=== PATIENT | male | born 1965 | race Caucasian/White ===

== ENCOUNTER 2019-10-29 13:16 | Outpatient (CLI) | payer OTHER, SELFPAY ==
[2019-10-29 14:17] LABS: Basophils Percent Auto 0.4 % (0.2-1.2); Eosinophils Absolute Auto 0.2 K/mm3 (0-0.3); Eosinophils Percent Auto 2.4 % (0-4.4); Hemoglobin 15.1 g/dL (14.0-18.0); Immature Granulocyte Absolute 0.05 K/mm3 (0.00-0.031); Immature Granulocyte Percent A 0.5 % (0-0.5); Lymphocytes Absolute Auto 2.43 K/mm3 (0.9-3.2); Lymphocytes Percent Auto 26.3 % (18.3-44.2); Mean Corpuscular HGB Conc 33.6 g/dl (32-36); Mean Corpuscular Hemoglobin 28.7 pg (26-34); Mean Corpuscular Volume 85.6 fl (80-100); Mean Platelet Volume 10.6 fl (7.4-10.4); Monocytes Absolute Auto 0.7 K/mm3 (0.1-0.6); Monocytes Percent Auto 7.4 % (2.6-8.5); Neutrophils Absolute Auto 5.8 K/mm3 (1.3-6.7); Platelet Count Result 153 k/mm3 (150-375); Red Blood Count 5.26 M/mm3 (4.6-6.20); Red Cell Distribution Width 14.6 % (11.5-14.5); White Blood Count 9.3 K/mm3 (4.5-10.0)
[2019-10-29 14:20] LABS: Add Urine Microscopic? YES; Appearance Urine Clear (Clear); Bilirubin Urine Negative (Negative); Blood Urine 1+ (Negative); Color Urine Yellow (Yellow); Glucose Urine UA Negative (Negative); Ketones Urine Negative (Negative); Leukocyte Esterase Ur Negative LEU/UL (NEGATIVE); Mucus Urine Rare /lpf; Nitrate Urine Negative (Negative); Protein Urine Negative (Negative); Specific Grav Ur 1.018 (1.001-1.035); Squamous Epithelial Cell Urine Rare /hpf (Few); Urobilinogen Urine Negative mg/dL (<2.0); WBC Urine 0-3 /hpf (0-3)
[2019-10-29 14:32] LABS: Alanine Aminotransferase 61 U/L (4-50); Albumin Level 4.5 g/dL (3.5-5.1); Alkaline Phosphatase 108 U/L (38-126); Aspartate Amino Transferase 48 U/L (17-59); Bilirubin,Total 1.3 mg/dL (0.2-1.3); Blood Urea Nitrogen 15 mg/dL (9-20); Calcium 9.1 mg/dL (8.4-10.2); Carbon Dioxide 25 mmol/L (22-30); Chloride 104 mmol/L (98-107); Cholesterol 229 mg/dL (0-200); Estimated Glomerular Filt Rate > 60; Glucose 89 mg/dL (75-110); HDL Direct 26 mg/dL; Sodium 138 mmol/L (137-145); Triglycerides 249 mg/dL (<150)
[2019-10-29 14:42] LABS: LDL Cholesterol Direct 178 mg/dL
[2019-10-29 15:03] LABS: Hemoglobin A1C 5.4 % (<5.7); Prostate Specific Antigen 0.4 ng/mL (< OR = 4.0)
== END 2019-10-29 13:17 | disposition home or self-care (01) ==
PROVIDERS: PCP Family Medicine; Visit Provider Physician Assistant
DX: E78.5 Hyperlipidemia, unspecified (principal); F32.9 Major depressive disorder, single episode, unspecified; R73.01 Impaired fasting glucose
CPT/HCPCS: 36415; 80053; 80061; 81001; 83036; 84153; 84443; 85025

== ENCOUNTER 2019-11-12 15:43 | Outpatient (CLI) | payer OTHER, SELFPAY ==
[2019-11-12 16:15] LABS: Add Urine Microscopic? YES; Appearance Urine Clear (Clear); Bilirubin Urine Negative (Negative); Blood Urine 1+ (Negative); Color Urine Yellow (Yellow); Glucose Urine UA Negative (Negative); Ketones Urine Negative (Negative); Leukocyte Esterase Ur Negative LEU/UL (NEGATIVE); Nitrate Urine Negative (Negative); Protein Urine Negative (Negative); Specific Grav Ur 1.017 (1.001-1.035); Urobilinogen Urine Negative mg/dL (<2.0); WBC Urine 0-3 /hpf (0-3)
== END 2019-11-12 15:44 | disposition home or self-care (01) ==
PROVIDERS: Physician Assistant; PCP Family Medicine; Visit Provider Family Medicine
DX: R31.9 Hematuria, unspecified (principal)
CPT/HCPCS: 81001

== ENCOUNTER 2020-04-27 13:45 | Outpatient (CLI) | payer OTHER, SELFPAY ==
--- NOTE | ~2020-04-27 | XR_ITS ---
EXAMINATION: XR chest 2V DATE: 04/27/2020 14:07 INDICATION: Chest pain. TECHNIQUE: Frontal and lateral views of the chest were obtained. COMPARISON: Chest CT 09/08/2018, chest 2 views 08/07/2017 FINDINGS: There is mild atelectasis at left lung base. Calcified right lung nodules and calcified rig ht hilar lymph nodes are consistent with old granulomatous disease. No pleural effusion or pneumothor ax. The heart size is normal. IMPRESSION: 1. Mild atelectasis at left lung base. Reviewed, dictated and finalized at location B. [facility]
[2020-04-27 14:28] LABS: Hemoglobin 15.4 g/dL (14.0-18.0); Mean Corpuscular HGB Conc 34.2 g/dl (32-36); Mean Corpuscular Hemoglobin 28.4 pg (26-34); Mean Platelet Volume 10.3 fl (7.4-10.4); Platelet Count Result 177 k/mm3 (150-375); Red Blood Count 5.42 M/mm3 (4.6-6.20); Red Cell Distribution Width 14.3 % (11.5-14.5); White Blood Count 11.1 K/mm3 (4.5-10.0)
[2020-04-27 14:43] LABS: D Dimer 0.27 ug/mL (<0.48)
[2020-04-27 15:50] LABS: Basophils Absolute Auto 0.1 K/mm3 (0.0-0.1); Basophils Percent Auto 0.5 % (0.2-1.2); Eosinophils Absolute Auto 0.2 K/mm3 (0-0.3); Eosinophils Percent Auto 1.9 % (0-4.4); Immature Granulocyte Absolute 0.05 K/mm3 (0.00-0.031); Immature Granulocyte Percent A 0.5 % (0-0.5); Lymphocytes Absolute Auto 2.27 K/mm3 (0.9-3.2); Lymphocytes Percent Auto 20.8 % (18.3-44.2); Monocytes Absolute Auto 0.8 K/mm3 (0.1-0.6); Monocytes Percent Auto 7.4 % (2.6-8.5); Neutrophils Absolute Auto 7.5 K/mm3 (1.3-6.7); Neutrophils Percent Auto 68.9 % (45.5-73.1)
== END 2020-04-27 13:46 | disposition home or self-care (01) ==
LOC: ANHIMG 13:48
PROVIDERS: PCP Family Medicine; Visit Provider Nurse Practitioner Family
DX: R07.9 Chest pain, unspecified (principal); R91.8 Other nonspecific abnormal finding of lung field
CPT/HCPCS: 36415; 71046; 85025; 85027; 85380

== ENCOUNTER 2020-08-03 08:31 | Outpatient (CLI) | payer OTHER, SELFPAY | END 2020-08-03 08:32 | disposition home or self-care (01) | LOC: ANHCOVIDVC 08:31 | PROVIDERS: PCP Family Medicine | DX: Z23 Encounter for immunization (principal) | CPT/HCPCS: 0001A; 91300 ==

== ENCOUNTER 2020-08-24 08:29 | Outpatient (CLI) | payer OTHER, SELFPAY | END 2020-08-24 08:30 | disposition home or self-care (01) | LOC: ANHCOVIDVC 08:29 | PROVIDERS: PCP Family Medicine | DX: Z23 Encounter for immunization (principal) | CPT/HCPCS: 0002A; 91300 ==

== ENCOUNTER 2021-05-26 12:17 | Outpatient (CLI) | payer OTHER, SELFPAY ==
[2021-05-26 12:38] LABS: Basophils Absolute Auto 0.1 K/mm3 (0.0-0.1); Basophils Percent Auto 0.7 % (0.2-1.2); Eosinophils Absolute Auto 0.2 K/mm3 (0-0.3); Hematocrit 44.7 % (42.0-52.0); Immature Granulocyte Absolute 0.04 K/mm3 (0.00-0.031); Immature Granulocyte Percent A 0.4 % (0-0.5); Lymphocytes Absolute Auto 2.42 K/mm3 (0.9-3.2); Lymphocytes Percent Auto 26.4 % (18.3-44.2); Mean Corpuscular HGB Conc 33.6 g/dl (32-36); Mean Corpuscular Volume 86.5 fl (80-100); Mean Platelet Volume 10.1 fl (7.4-10.4); Monocytes Absolute Auto 0.6 K/mm3 (0.1-0.6); Monocytes Percent Auto 6.9 % (2.6-8.5); Neutrophils Absolute Auto 5.9 K/mm3 (1.3-6.7); Neutrophils Percent Auto 63.6 % (45.5-73.1); Platelet Count Result 177 k/mm3 (150-375); Red Blood Count 5.17 M/mm3 (4.6-6.20); Red Cell Distribution Width 14.2 % (11.5-14.5); White Blood Count 9.2 K/mm3 (4.5-10.0)
[2021-05-26 12:47] LABS: Alanine Aminotransferase 44 U/L (4-50); Albumin Level 4.7 g/dL (3.5-5.1); Alkaline Phosphatase 109 U/L (38-126); Anion Gap 10 mmol/L (8-16); Aspartate Amino Transferase 32 U/L (17-59); Blood Urea Nitrogen 14 mg/dL (9-20); Calcium 9.2 mg/dL (8.4-10.2); Carbon Dioxide 25 mmol/L (22-30); Chloride 105 mmol/L (98-107); Cholesterol 231 mg/dL (0-200); Estimated Glomerular Filt Rate > 60; Glucose 102 mg/dL (65-110); HDL Direct 34 mg/dL; Potassium 4.4 mmol/L (3.4-5.0); Sodium 140 mmol/L (137-145); Triglycerides 187 mg/dL (<150)
[2021-05-26 12:58] LABS: LDL Cholesterol Direct 168 mg/dL
[2021-05-26 13:02] LABS: Add Urine Microscopic? YES; Appearance Urine Clear (Clear); Bacteria Urine Trace /hpf; Bilirubin Urine Negative (Negative); Blood Urine Negative (Negative); Color Urine Yellow (Yellow); Glucose Urine UA Negative (Negative); Ketones Urine Negative (Negative); Leukocyte Esterase Ur Negative LEU/UL (NEGATIVE); Mucus Urine Rare /lpf; Nitrate Urine Negative (Negative); Protein Urine Negative (Negative); RBC Urine 0-2 /hpf (0-2); Specific Grav Ur 1.024 (1.001-1.035); Squamous Epithelial Cell Urine Rare /hpf (Few); WBC Urine 0-3 /hpf (0-3)
[2021-05-26 13:18] LABS: Prostate Specific Antigen 0.3 ng/mL (< OR = 4.0)
[2021-05-26 13:53] LABS: Folic Acid 5.1 ng/mL (2.76->20)
== END 2021-05-26 12:18 | disposition home or self-care (01) ==
PROVIDERS: PCP Family Medicine; Visit Provider Physician Assistant
DX: R31.9 Hematuria, unspecified (principal); R20.2 Paresthesia of skin; R73.01 Impaired fasting glucose; R25.3 Fasciculation; F32.9 Major depressive disorder, single episode, unspecified; E78.5 Hyperlipidemia, unspecified; Z00.00 Encounter for general adult medical examination without abnormal findings
CPT/HCPCS: 36415; 80053; 80061; 81001; 82607; 82746; 84153; 84443; 85025

== ENCOUNTER 2022-03-18 03:08 | Day surgery (SDC) | payer OTHER, SELFPAY ==
[2022-03-12 12:23] VITALS: BMI 34.1
[2022-03-18] MEDS: LACTATED RINGERS 1,000 ML 150 ML IV CONT (08:46)
[2022-03-18 08:47] VITALS: BP 122/92; PULSE 85; RESP 18; TEMP 36.3; O2SAT 98; BMI 34.9
--- NOTE | 2022-03-18 08:56 | WPDANESEPPF ---
Anes - Initial Pre Proc Eval Procedure: Operation Date: 03/18/22 09:30 Proposed Procedures p Screening Colonoscopy - Prosper Barrow MD Date/Time: 03/18/22 08:56 Surgeon: Prosper Barrow MD Pre Op Diagnosis: hx of colon polyps, neoplasm screening Patient Data Age: 56 Gender: M Height: 1.78 m Weight: 110.3 kg Last Vital Signs Temp 36.3 C L 03/18/22 08:47 Pulse 85 03/18/22 08:47 Resp 18 03/18/22 08:47 BP 122/92 H 03/18/22 08:47 Pulse Ox 98 03/18/22 08:47 O2 Del Method Room Air 03/18/22 08:47 Allergies Allergy/AdvReac Type Severity Reaction Status Date / Time No Known Allergies Allergy Unknown Verified 03/18/22 08:41 Home Medications Medication Instructions Recorded Confirmed Type triamcinolone acetonide 0.1 % 1 applic topical BID #30 grams 09/12/20 03/18/22 Rx topical cream atorvastatin 80 mg tablet See Rx Instructions .Route 04/26/21 03/18/22 Rx .COMPLEX #90 tabs omeprazole 40 mg capsule,delayed 40 mg PO DAILY #90 caps 08/02/21 03/18/22 Rx release bupropion HCl 150 mg 24 hr tablet, 150 mg PO QAM #90 tabs 08/27/21 03/18/22 Rx extended release (Wellbutrin XL) buspirone 5 mg tablet 5 mg PO BID #60 tabs 01/01/22 03/18/22 Rx peg 3350-electrolytes 236 240 ml PO Q10M #4,000 mL 02/11/22 03/18/22 Rx gram-22.74 gram-6.74 gram-5.86 gram solution (Golytely) sertraline 100 mg tablet (Zoloft) 200 mg PO DAILY #180 tabs 03/04/22 03/18/22 Rx Patient hx anesthesia problems: none Family hx anesthesia problems: none Results Review: All pre-operative results and documents have been reviewed as part of the pre-operative evaluation. [facility] Past Medical History Medical History Depression H/O traumatic brain injury Hematuria Hyperlipidemia IFG (impaired fasting glucose) Muscle twitching Paresthesia of lower extremity SDH (subdural hematoma) Skin mole Surgical History Surgical History (Updated 03/18/22 @ 08:56 by Pantera Pinedo MD) H/O colonoscopy Social History Social History Social History: Single Smoking packs per day: 2.5 Smoking cigarettes per day: 50.0 Years smoked: 28 Smoking pack-years: 70.00 Smoking status: Former smoker Tobacco type: cigarettes Second hand tobacco smoke exposure: No Smoking end date: 05/19/99 Alcohol intake: current Drinks per week: 1 Alcohol use details: socially Substance use: never Substance use type: does not use Living arrangements: with family Gender identity (if verbalized by the patient): Male Sexual Orientation (if Verbalized by the Patient): Straight or Heterosexual Spiritual care concerns: No Anes - Eval Final PreProcedure Day of Procedure 03/18/22 08:56 Patient weight: obese Heart: regular rate and rhythm Lungs: clear to auscultation Airway: Mallampati scale class II Neurological: alert and oriented Last oral intake: >/= 8 hours ASA classification: III Emergent: no Anesthesia type and monitoring: general GIVS and standard monitoring Results Review: All pre-operative results and documents have been reviewed as part of the pre-operative evaluation. Informed Consent: The patient's anesthetic plan and its attendant risks and benefits were discussed with the patient/family/POA. Questions were solicited and answers provided to the satisfaction of the patient/family/POA.
--- NOTE | 2022-03-18 09:13 | PM.HPGS ---
History of Present Illness History of Present Illness Consent: Risks, benefits, and alternatives have been discussed and questions answered. Patient agrees to proceed with procedure. Chief complaint: hx of colon polyps, neoplasm screening Narrative: Richard Cardona II is a 56 year old male Presents for screening colonoscopy. Patient's current weight appetite and bowel movements are normal. Patient denies abdominal pain. He has had no bleeding. Previous colonoscopy [address] Dow revealed several benign adenomatous colon polyps. Patient presents today for screening colonoscopy. Family history noncontributory. Review of Systems Review of Systems: Patient admits to frequent rectal bleeding attributed to hemorrhoids. He notes bright red blood per rectum 4/5 days a week. [facility] Past Medical History Medical History (Updated 03/18/22 @ 09:14 by Prosper Barrow MD) Depression H/O traumatic brain injury Hematuria Hyperlipidemia IFG (impaired fasting glucose) Muscle twitching Paresthesia of lower extremity SDH (subdural hematoma) Skin mole Surgical History Surgical History (Updated 03/18/22 @ 08:56 by Pantera Pinedo MD) H/O colonoscopy Social History Social History Social History: Single Smoking packs per day: 2.5 Smoking cigarettes per day: 50.0 Years smoked: 28 Smoking pack-years: 70.00 Smoking status: Former smoker Tobacco type: cigarettes Second hand tobacco smoke exposure: No Smoking end date: 05/19/99 Alcohol intake: current Drinks per week: 1 Alcohol use details: socially Substance use: never Substance use type: does not use Living arrangements: with family Gender identity (if verbalized by the patient): Male Sexual Orientation (if Verbalized by the Patient): Straight or Heterosexual Spiritual care concerns: No Meds Home Medications and Allergies Home Medications Medication Instructions Recorded Confirmed Type triamcinolone acetonide 0.1 % 1 applic topical BID #30 grams 09/12/20 03/18/22 Rx topical cream atorvastatin 80 mg tablet See Rx Instructions .Route 04/26/21 03/18/22 Rx .COMPLEX #90 tabs omeprazole 40 mg capsule,delayed 40 mg PO DAILY #90 caps 08/02/21 03/18/22 Rx release bupropion HCl 150 mg 24 hr tablet, 150 mg PO QAM #90 tabs 08/27/21 03/18/22 Rx extended release (Wellbutrin XL) buspirone 5 mg tablet 5 mg PO BID #60 tabs 01/01/22 03/18/22 Rx peg 3350-electrolytes 236 240 ml PO Q10M #4,000 mL 02/11/22 03/18/22 Rx gram-22.74 gram-6.74 gram-5.86 gram solution (Golytely) sertraline 100 mg tablet (Zoloft) 200 mg PO DAILY #180 tabs 03/04/22 03/18/22 Rx Allergies Allergy/AdvReac Type Severity Reaction Status Date / Time No Known Allergies Allergy Unknown Verified 03/18/22 08:41 Vital Signs Vital Signs - 24 hr 03/18/22 08:47 Temperature 97.3 F L Pulse Rate 85 Respiratory Rate 18 Blood Pressure 122/92 H Pulse Oximetry 98 Oxygen Delivery Room Air Exam Narrative: Physical exam reveals patient to be alert. Vital signs stable. HEENT exam is unremarkable. Patient anicteric. Lungs are clear to auscultation and percussion. Heart is without murmur or extra sounds. Abdomen bowel sounds present soft nontender with no hepatosplenomegaly. Digital external rectal exam is normal. Assessment and Plan Assessment and plan (1) History of colon polyps: Code(s): Z86.010 - Personal history of colonic polyps Status: Acute Assessment and Plan: Patient has a history of adenomatous colon polyps removed from the colon 2016. Plan for surveillance colonoscopy at this time. (2) H/O traumatic brain injury: Code(s): Z87.820 - Personal history of traumatic brain injury Status: Acute
[2022-03-18 09:45] VITALS: BP 117/81; PULSE 82; RESP 22; O2SAT 93
[2022-03-18 09:55] VITALS: BP 131/91; PULSE 87; RESP 24; O2SAT 99
[2022-03-18 10:05] VITALS: BP 124/86; PULSE 74; RESP 15; O2SAT 99
== END 2022-03-18 10:19 | disposition home or self-care (01) ==
PROVIDERS: PCP Family Medicine; Visit Provider Internal Medicine Gastroenterology
PROC: 0DJD8ZZ Inspection of Lower Intestinal Tract, Via Natural or Artificial Opening Endoscopic (ICD-10-PCS; CPT 45378; principal; 2022-03-18 09:30)
DX: Z12.11 Encounter for screening for malignant neoplasm of colon (principal); D12.2 Benign neoplasm of ascending colon; D12.4 Benign neoplasm of descending colon; K64.8 Other hemorrhoids; E78.5 Hyperlipidemia, unspecified; Z87.891 Personal history of nicotine dependence; F32.A Depression, unspecified; Z87.820 Personal history of traumatic brain injury
CPT/HCPCS: 45385; 88305; J2704; J7120

== ENCOUNTER 2022-04-22 09:38 | Outpatient (CLI) | payer OTHER, SELFPAY ==
[2022-04-22 10:21] LABS: Basophils Absolute Auto 0.1 K/mm3 (0.0-0.1); Basophils Percent Auto 0.6 % (0.2-1.2); Eosinophils Absolute Auto 0.2 K/mm3 (0-0.3); Eosinophils Percent Auto 2.1 % (0-4.4); Hematocrit 46.7 % (42.0-52.0); Immature Granulocyte Absolute 0.04 K/mm3 (0.00-0.031); Immature Granulocyte Percent A 0.5 % (0-0.5); Lymphocytes Absolute Auto 1.96 K/mm3 (0.9-3.2); Lymphocytes Percent Auto 22.4 % (18.3-44.2); Mean Corpuscular HGB Conc 34.3 g/dl (32-36); Mean Corpuscular Hemoglobin 29.7 pg (26-34); Mean Corpuscular Volume 86.6 fl (80-100); Monocytes Absolute Auto 0.5 K/mm3 (0.1-0.6); Monocytes Percent Auto 6.1 % (2.6-8.5); Neutrophils Percent Auto 68.3 % (45.5-73.1); Platelet Count Result 173 k/mm3 (150-375); Red Blood Count 5.39 M/mm3 (4.6-6.20); Red Cell Distribution Width 14.5 % (11.5-14.5); White Blood Count 8.8 K/mm3 (4.5-10.0)
[2022-04-22 10:53] LABS: Alanine Aminotransferase 46 U/L (6-50); Albumin Level 4.9 g/dL (3.5-5.1); Alkaline Phosphatase 116 U/L (38-126); Anion Gap 10 mmol/L (8-16); Aspartate Amino Transferase 33 U/L (17-59); Bilirubin,Total 0.9 mg/dL (0.2-1.3); Blood Urea Nitrogen 17 mg/dL (9-20); Calcium 9.1 mg/dL (8.4-10.2); Carbon Dioxide 26 mmol/L (22-30); Chloride 102 mmol/L (98-107); Estimated Glomerular Filt Rate > 60; Glucose 105 mg/dL (65-110); Potassium 4.1 mmol/L (3.4-5.0); Sodium 138 mmol/L (137-145)
[2022-04-22 11:12] LABS: T4 Thyroxine 9.36 ug/dL (5.53-11.0)
[2022-04-25 10:50] LABS: Ceruloplasmin 26 mg/dL (18-36)
== END 2022-04-22 09:39 | disposition home or self-care (01) ==
PROVIDERS: PCP Family Medicine; Visit Provider Psychiatry & Neurology Neurology
DX: R56.9 Unspecified convulsions (principal)
CPT/HCPCS: 36415; 80053; 82390; 82607; 82746; 84436; 84443; 85025; 86038

== ENCOUNTER 2022-05-03 10:33 | Outpatient (CLI) | payer OTHER, SELFPAY ==
--- NOTE | 2022-05-04 14:36 | P.NEURO_ITS ---
Neurology EEG Report General Information Date of Study: 05/03/22 TEST EEG DIAGNOSIS tremors CONDITION OF RECORDING awake and drowsy and sleep EEG NUMBER [id number] CLINICAL HISTORY patient states he has been having episodes of twitching and jerking of random different body parts. Says he has had 4 such episodes during this recording EEG DESCRIPTION background rhythm consists of low-voltage 9 to 11 hertz per 2nd alpha posteriorly admixed with low-voltage 15 to 18 hertz per 2nd beta activity. Low- voltage beta activity seen diffusely admixed with waxing and waning posterior alpha rhythm during drowsiness and bilateral symmetrical sleep activity seen during sleep. Hyperventilation not done. Photic stimulation produced normal drive. Non paroxysmal. Nonfocal. Nonlateralizing. IMPRESSION No significant abnormalities noted
== END 2022-05-03 10:34 | disposition home or self-care (01) ==
LOC: ANHNEURO 10:35
PROVIDERS: PCP Family Medicine; Visit Provider Psychiatry & Neurology Neurology
DX: R56.9 Unspecified convulsions (principal)
CPT/HCPCS: 95816

== ENCOUNTER 2022-05-05 10:35 | Outpatient (CLI) | payer OTHER, SELFPAY ==
--- NOTE | ~2022-05-05 | MR_ITS ---
MRI of the brain Clinical History: Tremor Technique: Axial and sagittal T1-weighted images were acquired. These were followed by axial T2-weigh darlene, diffusion weighted, gradient, and FLAIR images. COMPARISON: 05/02/2018 Findings: There is no significant signal abnormality in the brain parenchyma. No acute infarct, intra cranial hemorrhage, or mass lesion identified. Ventricles and subarachnoid spaces are unremarkable. Orbits are unremarkable. There is moderate left maxillary sinus mucosal thickening. Remaining paranasal sinuses and mastoid air cells are clear. Nuha r intracranial flow voids appear intact. Sagittal midline structures are intact. IMPRESSION: No intracranial abnormality. Left maxillary sinus disease. Reviewed, dictated and finalized at location [] [facility]ER
== END 2022-05-05 10:36 | disposition home or self-care (01) ==
PROVIDERS: PCP Family Medicine; Visit Provider Psychiatry & Neurology Neurology
DX: R56.9 Unspecified convulsions (principal); R25.1 Tremor, unspecified
CPT/HCPCS: 70551

== ENCOUNTER 2022-10-17 16:18 | Outpatient (CLI) | payer OTHER, SELFPAY ==
--- NOTE | ~2022-10-17 | XR_ITS ---
EXAMINATION: XR lumbar spine min 4V DATE: 10/17/2022 16:41 INDICATION: Low back pain. TECHNIQUE: 5 views of lumbar spine were obtained. COMPARISON: CT abdomen and pelvis 09/08/2018 FINDINGS: There is 9 degrees levocurvature of lumbar spine. Vertebral body heights are normal. There is mildly decreased disc height at L2-L3, L4-L5, and L5-S1. There is multilevel facet joint osteoarth ritis, severe on the right at L3-L4 and L4-L5 and on the left at L5-S1. IMPRESSION: 1. Mild lumbar spondylosis. Reviewed, dictated and finalized at location A. IMPRESSION: 1. Mild lumbar spondylosis.
== END 2022-10-17 16:19 | disposition home or self-care (01) ==
PROVIDERS: PCP Family Medicine; Visit Provider Physician Assistant
DX: R20.0 Anesthesia of skin (principal); R20.2 Paresthesia of skin; M47.896 Other spondylosis, lumbar region
CPT/HCPCS: 72110

== ENCOUNTER 2022-10-29 09:34 | Outpatient (CLI) | payer OTHER, SELFPAY ==
--- NOTE | 2022-10-29 11:00 | NEURO_ITS ---
Impression: # Complains of numbness of lower extremities. # Normal nerve conduction study. # Normal needle/EMG exam. # Clinical correlation recommended. Nerve Conduction Studies Anti Sensory Summary Table Stim Site NR Peak (ms) P-T Amp (?V) Site1 Site2 Delta-P (ms) Dist (cm) Andrea (m/s) Left Sup Fibular Anti Sensory (Ant Lat Mall) 14 cm 3.4 7.0 14 cm Ant Lat Mall 3.4 16.0 47 Right Sup Fibular Anti Sensory (Ant Lat Mall) 14 cm 3.7 5.7 14 cm Ant Lat Mall 3.7 16.0 43 Left Sural Anti Sensory (Lat Mall) Calf 3.7 17.4 Calf Lat Mall 3.7 16.0 43 Right Sural Anti Sensory (Lat Mall) Calf 3.5 8.5 Calf Lat Mall 3.5 16.0 46 Motor Summary Table Stim Site NR Onset (ms) O-P Amp (mV) Site1 Site2 Delta-0 (ms) Dist (cm) Andrea (m/s) Left Peroneal Motor (Vastus Med) Ankle 4.3 1.2 Popit Ankle 9.5 44.0 46 Popit 13.8 0.7 Right Peroneal Motor (Vastus Med) Ankle 4.5 1.5 Popit Ankle 8.5 40.0 47 Popit 13.0 1.4 Left Tibial Motor (Abd Hendrickson Brev) Ankle 4.6 3.0 Knee Ankle 9.8 46.0 47 Knee 14.4 4.4 Right Tibial Motor (Abd Hendrickson Brev) Ankle 4.2 3.5 Knee Ankle 9.4 42.0 45 Knee 13.6 1.7 F Wave Studies NR F-Lat (ms) L-R F-Lat (ms) Left Peroneal (Mrkrs) (EDB) 56.09 1.45 Right Peroneal (Mrkrs) (EDB) 57.54 1.45 Left Tibial (Mrkrs) (Abd Hallucis) 57.47 1.33 Right Tibial (Mrkrs) (Abd Hallucis) 56.14 1.33 EMG Side Muscle Nerve Root Ins Act Fibs Amp Dur Recrt Comment Right AntTibialis Dp Br Fibular L4-5 Nml Nml Nml Nml Nml Right Gastroc Tibial S1-2 Nml Nml Nml Nml Nml Right Fibularis Long Sup Br Fibular L5-S1 Nml Nml Nml Nml Nml Right Flex Dig Long Tibial L5-S2 Nml Nml Nml Nml Nml Right Ext Dig Brev Dp Br Fibular L5, S1 Nml Nml Nml Nml Nml Left AntTibialis Dp Br Fibular L4-5 Nml Nml Nml Nml Nml Left Gastroc Tibial S1-2 Nml Nml Nml Nml Nml Left Fibularis Long Sup Br Fibular L5-S1 Nml Nml Nml Nml Nml Left Flex Dig Long Tibial L5-S2 Nml Nml Nml Nml Nml Left Ext Dig Brev Dp Br Fibular L5, S1 Nml Nml Nml Nml Nml Right QuadratusFem QuadFemoris L4-5, S1 Nml Nml Nml Nml Nml Left QuadratusFem QuadFemoris L4-5, S1 Nml Nml Nml Nml Nml MTDD
== END 2022-10-29 09:35 | disposition home or self-care (01) ==
LOC: ANHNEURO 09:36
PROVIDERS: PCP Family Medicine; Visit Provider Family Medicine
DX: R20.0 Anesthesia of skin (principal); R20.2 Paresthesia of skin
CPT/HCPCS: 95886; 95910

== ENCOUNTER 2024-01-21 10:27 | Outpatient (CLI) | payer OTHER, SELFPAY ==
--- NOTE | ~2024-01-21 | XR_ITS ---
EXAMINATION: XR ribs BI 3V w CXR 2V DATE: 01/21/2024 10:54 INDICATION: Cough, unspecified. Pleuritic chest pain. TECHNIQUE: A frontal view of the chest and 2 views on 3 radiographs of the right ribs and 2 views on 3 radiographs of the left ribs were obtained. COMPARISON: Chest 2 views 04/27/2020 FINDINGS: CHEST TWO VIEWS: Calcified right lung nodules and calcified right hilar lymph nodes are consistent wi th old granulomatous disease. No pleural effusion or pneumothorax. The heart size is normal. BILATERAL RIBS: There is no rib fracture. IMPRESSION: 1. No rib fracture. Reviewed, dictated and finalized at location A. IMPRESSION: 1. No rib fracture.
[2024-01-21 11:27] LABS: Influenza A QL RT-PCR Negative (Negative); Influenza B QL RT-PCR Negative (Negative); RSV RNA, RT-PCR Negative (Negative); SARS-CoV-2 RNA PCR Positive (Negative)
== END 2024-01-21 10:28 | disposition home or self-care (01) ==
LOC: ANHLAB 10:28
PROVIDERS: PCP Family Medicine; Visit Provider Physician Assistant
DX: R50.9 Fever, unspecified (principal); R05.9 Cough, unspecified; R07.81 Pleurodynia; U07.1 COVID-19
CPT/HCPCS: 71046; 71110; 87637

== ENCOUNTER 2024-06-15 13:19 | Outpatient (CLI) | payer OTHER, SELFPAY ==
--- NOTE | ~2024-06-15 | XR_ITS ---
Clinical Indication: Cough PA and lateral views of the chest: Comparison: 01/21/2024 Findings: The lungs are clear, without evidence of focal consolidation or pleural effusion. Cardiome diastinal silhouette is within normal limits. Bones and soft tissues are unremarkable. Impression: Normal chest. Reviewed, dictated and finalized at [facility]. [employer]OR MECH[employer]IC Impression: Normal chest.
--- OUTSIDE RECORDS SUMMARY | 2024-06-15 13:58 | XMS_ITS | Clinical Summary ---
Author Organization [facility] Address [address] [place] [address] Care Team Providers Care Rapid Extractor Operator Name Role Phone Jah Buckley MD Primary Care Provider [phone] Source Comments [facility],non-owned Affiliates and Associated Physician Practices is amultiple site organization consisting of ambulatory clinics and hospital sitesin [place], [place], [place] and [place]. This disclosure is being madepursuant to the Care Everywhere program and may not contain all information available regarding this patient. Last updated 18.[facility] Medications * Be aware that medications may not be up to date on this document. Alwaysverify current medications with the patient. Medication Sig Dispensed Refills Start Date End Date Status omeprazole (PRILOSEC) 10 MG capsule Take by mouth. 05/08/2017 Active sertraline (ZOLOFT) 25 MG tablet Take 150 mg by mouth DAILY. 03/24/2017 Active atorvastatin (LIPITOR) 80 MG tablet Take 80 mg by mouth DAILY. 03/08/2017 Active Active Problems Problem Noted Date Diagnosed Date Closed fracture of nasal bone 03/09/2017 Contusion of one lung 03/09/2017 Closed fracture of maxillary bone 03/09/2017 Fracture of other specified skull and facial bones, right side, initial encounter for closed fracture 03/09/2017 Nontraumatic subdural hemorrhage 03/07/2017 Immunizations Name Administration Dates Next Due FLU VACCINE TRI IIV3 SPLIT PF IM (FLUVIRIN) 02/17 TDAP (7yrs+) 03/07/2017 Family History Medical History Relation Name Comments CVA Father Status: d Diabetes Father None Known Mother Status: Alive Relation Name Status Comments Father Mother Social History Tobacco Use Types Packs/Day Years Used Date Smoking Tobacco: Never Smokeless Tobacco: Never Alcohol Use Standard Drinks/Week Comments Yes 0 (1 standard drink = 0.6 oz pur e alcohol) Sex and Gender Information Value Date Recorded Sex Assigned at Not on file Gender Identity Not on file Sexual Orientation Not on file Last Filed Vital Signs Vital Sign Reading Time Taken Comments Blood Pressure 116/81 05/08/2017 2:19 PM CNA Pulse 92 05/08/2017 2:19 PM CNA Temperature 36.8 ??C (98.3 ??F) 04/24/2017 12:[address] Respiratory Rate 18 03/11/2017 12:15 PM CDT Oxygen Saturation 95% 04/24/2017 12:04 PM CNA Inhaled Oxygen Concentration - - Weight 94.3 kg (208 lb) 05/08/2017 2:19 PM CNA Height 177.8 cm (5' 10 ) 05/08/2017 2:19 PM CNA Body Mass Index 29.84 05/08/2017 2:19 PM CNA Plan of Treatment Health Maintenance Due Date Last Done Comments COLOGUARD (AGES 45-75) - COL ON CA SCREENING 1965 COLON MONITORING 1965 COLONOSCOPY - COLON CA SCREENING 1965 CT COLONOGRAPHY - COLON CA SCREENING 1965 Colorectal Cancer Screening 1965 FIT - COLON CA SCREENING 1965 FLEX SIG - COLON CA SCREENING 1965 HIV SCREENING 1980 HEPATITIS C SCREENING 10/15/1983 HEPATITIS B VACCINE (1 of 3 - 19+ 3-dose series) 1984 PNEUMOCOCCAL VACCINE 50+ (1 of 1 - PCV) 10/20/2015 ZOSTER VACCINE (1 of 2) 10/20/2015 COVID-19 VACCINE (2023-2 5 season) 2024 INFLUENZA VACCINE (#1) 2024 03/08/2017 DEPRESSION SCREENING 05/19/2024 DTAP/TDAP/TD VACCINES (2 - T d or Tdap) 03/07/2027 03/07/2017 HIB VACCINE Aged Out No longer eligi ble based on patient's age to complete this topic HPV VACCINE Aged Out No longer eligi ble based on patient's age to complete this topic MENINGOCOCCAL (Group B) VACCINE Aged Out No longer eligible based on patient's age to complete this topic MENINGOCOCCAL VACCINE Aged Out No [place] eligible based on patient's age to complete this topic PNEUMOCOCCAL VACCINE Aged Out No long er eligible based on patient's age to complete this topic Care Teams Rapid Extractor Operator Relationship Specialty Start Date End Date Jah Buckley MD [address] [place] [address] PCP - General 07/22/16
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
--- OUTSIDE RECORDS SUMMARY | 2024-06-15 13:58 | XMS_ITS | Clinical Summary ---
Author Organization [facility] Address [address] [place] [address]. [place], [place] [id number] [place] [id number] Care Team Providers Care Occupational Therapist Aide Name Role Phone Unavailable Primary Care Provider Unavailabl e Social History Tobacco Use Types Packs/Day Years Used Date Smoking Tobacco: Never Assessed Sex and Gender Information Value Date Recorded Sex Assigned at Not on file Legal Sex Male 8:22 PM CDT Gender Identity Not on file Sexual Orientation Not on file Plan of Treatment Health Maintenance Due Date Last Done Comments Colorectal Cancer Screening Colonoscopy (10 Years) 1965 Annual Physical 1968 Hepatitis C 10/20/1983 DTaP, Tdap and Td Vaccines ( 1 - Tdap) 1984 Hepatitis B Vaccines (1 of 3 - 19+ 3-dose series) 1984 Zoster Vaccines (1 of 2) 10/20/2015 COVID-19 Vaccine (2023-2 5 season) 2024 Influenza Adult (#1) 2024 Meningococcal B Vaccine Aged Out No l onger eligible based on patient's age to complete this topic Meningococcal Vaccine Aged Out No greta jeramie eligible based on patient's age to complete this topic Pneumococcal Vaccine: Pediat rics (0 to 5 Years) and At-Risk Patients (6 to 64 Years) Aged Out No longer eligible b ased on patient's age to complete this topic RSV Immunizations Under 20 Months Aged Out No longer eligible based on patient's age to complete this topic
--- OUTSIDE RECORDS SUMMARY | 2024-06-15 13:58 | XMS_ITS | Clinical Summary ---
Author Organization [facility] Address [address], [address] [address] Phone Care Team Providers Care Jr. Java Developer Name Role Phone Jah Buckley MD Primary Care Provider Prosper Dow DO Unavailable [phone] Allergies No known active allergies Medications Atorvastatin Calcium (LIPITOR PO) Take by mouth. Active FLUoxetine HCl (PROZAC PO) Take by mouth. Active Omeprazole (PRILOSEC PO) Take by mouth. Active hyoscyamine (LEVSIN) 0.125 MG TabletIndication s:Lymphocytic colitis Take 1 Tab by mouth every 4 hours as needed for Cramping. 120 Tab 3 10/17/2016 Active Active Problems No known active problems Family History Medical History Relation Name Comments Diabetes Father Heart Attack Father Stroke Father Heart Attack Mother Stroke Mother Relation Name Status Comments Father Mother Social History Tobacco Use Types Packs/Day Years Used Date Smoking Tobacco: Former Cigarettes 2 29 0 10/17/1977 - 10/17/2006 Alcohol Use Standard Drinks/Week Comments Yes 1 (1 standard drink = 0.6 oz pur e alcohol) 3-4 per week Sex and Gender Information Value Date Recorded Sex Assigned at Not on file Legal Sex Male 8:49 AM EVP STRATEGY Gender Identity Not on file Sexual Orientation Not on file Last Filed Vital Signs Vital Sign Reading Time Taken Comments Blood Pressure 124/96 10/17/2016 2:10 PM CDT Pulse 77 10/17/2016 2:10 PM CDT Temperature 36.3 ??C (97.4 ??F) 10/17/2016 2:10 PM CD T Respiratory Rate 16 10/17/2016 2:10 PM CDT Oxygen Saturation 93% 10/17/2016 2:10 PM CDT Inhaled Oxygen Concentration - - Weight 103 kg (227 lb) 10/17/2016 2:10 PM CDT Height 180.3 cm (5' 11 ) 10/17/2016 2:10 PM CDT Body Mass Index 31.66 10/17/2016 2:10 PM CDT Plan of Treatment Health Maintenance Due Date Last Done Comments Hepatitis C Virus (HCV) Screening 1965 TdaP Immunization 1965 Hepatitis B Immunization (1 of 3 - 19+ 3-dose series) 1984 Cologuard 10/20/2015 Immunochemical Fecal Occult Blood 10/20/2015 Pneumococcal Immunization (5 0+ years) (1 of 1 - PCV) 10/20/2015 Zoster Immunization (1 of 2) 10/20/2015 PSA Discussion 2020 Colonoscopy 07/18/2021 07/18/2016 Colorectal Cancer Screening 07/18/2021 Influenza Immunization (#1) 2024 SARS-COV-2 Immunization ( - season) 2024 Respiratory Syncytial Virus (RSV) Immunization (Adult) (1 - 1-dose 75+ series) 2040 07/18/2016 Meningococcal Immunization (ACWY) Aged Out No longer eligible based on patient's age to complete this topic Pneumococcal Immunization Combined Aged Out No longer eligible based on patient's age to complete this topic Rotavirus Immunization Aged Out No lo nger eligible based on patient's age to complete this topic Procedures Procedure Name Priority Date/Time Associated Diagnosis Comments COLONOSCOPY Routine 07/18/2016 from Last 3 Months or Most Recently Relevant to Health Maintenance Results * COLONOSCOPY (07/18/2016) us Jah Buckley MD PROCEDURE/MINOR SURGICA L ORDERABLES Final Result from Last 3 Months or Most Recently Relevant to Health Maintenance Insurance [facility] Care Teams Jr. Java Developer Relationship Specialty Start Date End Date Jah Buckley MD [address] [place] [address] PCP - General Family Medicine 04/10/16 Prosper Dow DO [address] [place] [address] Gastroenterology 07/23/16
--- OUTSIDE RECORDS SUMMARY | 2024-06-15 13:58 | XMS_ITS | Referral Summary ---
Author Organization [facility] Address [address] [place] [address] Care Team Providers Care Installment Dealer Name Role Phone Jah Buckley MD Primary Care Provider [phone] Source Comments [facility],non-owned Affiliates and Associated Physician Practices is amultiple site organization consisting of ambulatory clinics and hospital sitesin [place], [place], [place] and [place]. This disclosure is being madepursuant to the Care Everywhere program and may not contain all information available regarding this patient. 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 RAIL TRAIN OPERATOR Pulse 92 05/08/2017 2:19 PM LIGHT RAIL TRAIN OPERATOR Temperature 36.8 ??C (98.3 ??F) 04/24/2017 12:[address] Respiratory Rate 18 03/11/2017 12:15 PM CDT Oxygen Saturation 95% 04/24/2017 12:04 PM LIGHT RAIL TRAIN OPERATOR Inhaled Oxygen Concentration - - Weight 94.3 kg (208 lb) 05/08/2017 2:19 PM LIGHT RAIL TRAIN OPERATOR Height 177.8 cm (5' 10 ) 05/08/2017 2:19 PM LIGHT RAIL TRAIN OPERATOR Body Mass Index 29.84 05/08/2017 2:19 PM LIGHT RAIL TRAIN OPERATOR Plan of Treatment Not on file Care Teams Installment Dealer Relationship Specialty Start Date End Date Jah Buckley MD [address] [place] [id number] PCP - General 07/22/16
== END 2024-06-15 13:20 | disposition home or self-care (01) ==
PROVIDERS: PCP Family Medicine; Visit Provider Physician Assistant
DX: R05.9 Cough, unspecified (principal)
CPT/HCPCS: 71046